=== PATIENT | female | born 1940 | race African-American/Black ===

== ENCOUNTER 2019-12-28 10:17 | Emergency (ER) | payer MEDICARE, MEDICAID ==
[~2019-12-28] VITALS: Ht 160 cm; Wt 81.7 kg
[2019-12-28 11:08] LABS: APTT 26.6 Seconds (25.0-31.3); INR 1.1; PROTIME 11.1 Seconds (9.20-11.50)
[2019-12-28 11:37] LABS: URINE BILIRUBIN NEGATIVE (Negative); URINE BLOOD NEGATIVE (Negative); URINE CLARITY CLEAR; URINE COLOR YELLOW; URINE GLUCOSE-RANDOM NEGATIVE (Negative); URINE KETONES NEGATIVE (Negative); URINE LEUKOCYTES-REFLEX TRACE (Negative); URINE NITRITE-REFLEX NEGATIVE (Negative); URINE PROTEIN NEGATIVE (Negative); URINE SPECIFIC GRAVITY <= 1.005 (1.005-1.030); URINE UROBILINOGEN 0.2 E.U./dl (0.2-1.0)
[2019-12-28 11:47] LABS: BACTERIA-REFLEX 1-9 Few /HPF (None Seen); MUCUS 0-3 Light strn/LPF (None Seen); SQUAMOUS 0-3 Few /LPF (0-3); URINE RBC 0-2 Rare /HPF (0-2); URINE WBC-REFLEX 0-5 Rare /HPF (0-5)
[2019-12-28 11:48] LABS: CASTS None Seen /LPF (None Seen); CRYSTALS None Seen /LPF (None Seen)
[2019-12-28 11:53] LABS: AMP/METHAMP Negative (Negative); BARBITURATES Negative (Negative); BENZODIAZEPINES POSITIVE (Negative); COCAINE Negative (Negative); METHADONE Negative (Negative); OPIATES Negative (Negative); PCP Negative (Negative); THC Negative (Negative)
[2019-12-28 11:57] LABS: ABSOLUTE LYMPHOCYTES 0.8 thou/uL (0.8-5.3); ABSOLUTE MONOCYTES 0.5 thou/uL (0.0-1.2); ABSOLUTE NEUTROPHILS 1.9 thou/uL (1.6-8.1); BASOPHILS 0.6 %; EOSINOPHILS 1.2 %; HEMATOCRIT 36.3 % (37.0-47.0); HEMOGLOBIN 12.2 gm/dL (12.0-15.0); LYMPHOCYTES 24.5 %; MCH 32.8 pg (26.0-34.0); MCHC 33.6 g/dL (28.0-37.0); MCV 97.7 fL (80.0-100.0); MONOCYTES 15.2 %; MPV 8.1 fl. (7.2-11.1); NUCLEATED RBCS 0 /100WBC; PLATELET COUNT* 238 thou/uL (150-400); POLYS 58.5 %; RBC 3.72 mil/uL (4.20-5.00); RDW-CV 14.9 % (10.5-14.5); WBC 3.3 thou/uL (4.0-11.0)
[2019-12-28 12:10] LABS: CALCIUM 8.4 mg/dL (8.5-10.1); CREATININE 0.8 mg/dL (0.6-1.3); POTASSIUM 3.9 mmol/L (3.5-5.1)
[2019-12-28 12:22] LABS: ALBUMIN 3.3 g/dL (3.4-5.0); TOTAL BILIRUBIN 0.2 mg/dL (<0.1-1.0); TOTAL PROTEIN 6.9 g/dL (6.4-8.2)
[2019-12-28 13:52] VITALS: BP 121/58
--- NOTE | 2019-12-28 16:54 | EKG ---
[place] [address] ELECTROCARDIOGRAM REPORT Name: LULU GREEN Room: [place]#: [id number] Admission: 12/28/19 Attend Phys: Discharge: 12/28/19 Date of : 44 Date of Service: 12/28/19 1058 Report #: [id number] THIS REPORT FOR: //name// [facility] ED Test Date: 2019-12-28 Test Time: 10:58:52 Pat Name: LULU GREEN Department: Room: Gender: Blind Cleaner: : 1940 Requested By: Avani Vieyra Order Number: [id number] MD: Michele Aguilar Measurements Intervals [place] Rate: 87 P: 50 [place]: 152 QRS: 1 QRSD: 88 T: 13 QT: 381 QTc: 459 Interpretive Statements Sinus rhythm Probable left atrial enlargement Left ventricular hypertrophy No previous ECG available for comparison Electronically Signed On 12-28-2019 16:53:23 SURVEY FIELD TECHNICIAN by Michele Aguilar [email or web address] <ELECTRONICALLY SIGNED> By: Michele Aguilar MD, [facility] 12/28/19 1653 1058 1058 Michele Aguilar MD, FAC /EPI
== END 2019-12-28 13:53 | disposition home or self-care (01) ==
LOC: M.ERS 10:17
PROVIDERS: Physician Assistant
DX: D72.819 Decreased white blood cell count, unspecified (principal); R53.1 Weakness; R51 Headache; R29.6 Repeated falls; R42 Dizziness and giddiness